=== PATIENT | female | born 1980 | race Caucasian/White ===

== ENCOUNTER → 2019-11-16 | Outpatient (CLI) | payer BC ==
[~2019-11-16] MED LIST: ASCO500T93 PO; CHOL10002 PO; HYDR25TA6 PO; IRBE150T9 PO; MULT-516 PO; OMEP-110 PO
== END | disposition home or self-care (01) ==
LOC: CFH 07:32
PROVIDERS: ATTEND Internal Medicine Cardiovascular Disease
DX: R07.89 Other chest pain (principal)
CPT/HCPCS: 78452; 93017; A9502